=== PATIENT | male | born 1965 | race American Indian/Alaskan Native ===

== ENCOUNTER 2020-05-26 18:13 | Emergency (ER) | payer SELFPAY ==
--- NOTE | 2020-05-26 18:51 | Emergency Department Report ---
ED Back Pain/Injury HPI - General Chief Complaint: Back Pain/Injury Stated Complaint: BACK PAIN Time Seen by Provider: 05/26/20 18:37 Source: patient Limitations: No Limitations - History of Present Illness Initial Comments: 54-year-old [place]ag[place] male past medical history of chronic back pain flareups for several years due to a previous injury presents to emergency department co mplaining of pain after a lifting pushing and pulling movements which he states is secondary to him being out of his usual back pain medications. Reports no numbness, no tingling, no loss of bowel bladder, no saddle paresthesia, no fever, chills, sweats, no chest pain, no palpitations. MD Complaint: back pain Similar Symptoms Previously: No Radiation: none Severity: mild, moderate Consistency: constant Improves With: none Worsens With: none Associated Symptoms: denies other symptoms - Related Data Previous Rx's Medication Instructions Recorded Last Taken Type Diclofenac Sodium 50 mg PO BID PRN #30 tablet. 05/26/20 Unknown Rx Gabapentin [Neurontin] 600 mg PO QPM #14 tab 05/26/20 Unknown Rx Allergies Allergy/AdvReac Type Severity Reaction Status Date / Time No Known Allergies Allergy Unverified 05/26/20 18:20 ED Review of Systems ROS: Stated complaint: BACK PAIN Other details as noted in HPI Comment: All other systems reviewed and negative ED Past Medical Hx - Past Medical History Previous Medical History?: Yes Additional medical history: Back pain - Surgical History Past Surgical History?: Yes Additional Surgical History: Left shoulder rotator cuff - Social History Smoking Status: Current Every Day Smoker Substance Use Type: Alcohol - Medications Home Medications: Home Medications Medication Instructions Recorded Confirmed Last Taken Type Diclofenac Sodium 50 mg PO BID PRN #30 tablet. 05/26/20 Unknown Rx Gabapentin [Neurontin] 600 mg PO QPM #14 tab 05/26/20 Unknown Rx ED Physical Exam - General Limitations: No Limitations General appearance: alert, in no apparent distress - Head Head exam: Present: atraumatic, normocephalic - Eye Eye exam: Present: normal appearance - ENT ENT exam: Present: mucous membranes moist - Neck Neck exam: Present: normal inspection - Respiratory Respiratory exam: Present: normal lung sounds bilaterally. Absent: respiratory distress - Cardiovascular Cardiovascular Exam: Present: regular rate, normal rhythm. Absent: systolic murmur, diastolic murmur, rubs, gallop - GI/Abdominal GI/Abdominal exam: Present: soft, normal bowel sounds - Rectal Rectal exam: Present: deferred - Extremities Exam Extremities exam: Present: normal inspection - Back Exam Back exam: Present: normal inspection, paraspinal tenderness, other (Straight leg raise is negative. Tiffanie's test negative.). Absent: CVA tenderness (R), CVA tenderness (L), vertebral tenderness - Neurological Exam Neurological exam: Present: alert, oriented X3, CN II-XII intact, other (Gait coordinated no foot drop, no saddle paresthesia,) - Psychiatric Psychiatric exam: Present: normal affect, normal mood - Skin Skin exam: Present: warm, dry, intact, normal color. Absent: rash ED Course Vital Signs 05/26/20 18:22 Temperature 98.2 F Pulse Rate 81 Respiratory 20 Rate Blood Pressure 149/89 O2 Sat by Pulse 99 Oximetry ED Medical Decision Making - Medical Decision Making Pt presents the emergency department complaining of back pain most consistent with chronic back Pain Most Consistent with Strain/Contusion. Differential Diagnosis Includes Lumbar Go Versus Musculoskeletal Spasm, Strain Versus Sciatica. No Back Pain Red Flags on History or Physical. Presentation Not Consistent with Malignancy, Fracture, Cauda Equina, Abdominal Aortic Aneurysm, Viscus Perforation, Pulmonary Embolism, Renal Colic, Pyelonephritis. Patient reports no B symptoms, trauma trauma, incontinence, saddle anesthesia, distal weakness, urinary symptoms and is a febrile. Critical care attestation.: If time is entered above; I have spent that time in minutes in the direct care of this critically ill patient, excluding procedure time. ED Disposition Clinical Impression: Lumbago Disposition: [id number] TO HOME OR SELFCARE Is pt being admited?: No Does the pt Need Aspirin: No Condition: Stable Instructions: Back Exercises, Skal-ek-Ddul, Chronic Back Pain, Back Injury Prevention Additional Instructions: Please follow-up with your primary care doctor for further medication refills and please be sure to keep track of your current medications to prevent running out of the medications in the future. Prescriptions: Diclofenac Sodium 50 mg PO BID PRN #30 tablet.dr LEVY Reason: back pain Gabapentin [Neurontin] 600 mg PO QPM #14 tab Referrals: [facility] [Provider Group] - 3-5 Days
== END 2020-05-26 20:18 | disposition home or self-care (01) ==
LOC: ED 18:13
CPT/HCPCS: 99282